=== PATIENT | male | born 1950 | race Caucasian/White ===

== ENCOUNTER 2018-12-14 04:02 | Observation (INO) ==
[2018-12-14] MEDS ORDERED: Sodium Chloride 0.9% 1,000 ML PRIMARY IV ONE (04:27)
[2018-12-14] MEDS ORDERED: ONDANSETRON 4 MG/2 ML VIAL IVP ONE (04:29)
[2018-12-14] MEDS ORDERED: KETOROLAC 15 MG/1 ML VIAL IVP ONE (04:30)
--- NOTE | 2018-12-14 04:41 | EKG ---
[address] [address] Measurements Intervals [place] Rate: 75 P: 45 SD: 164 QRS: -2 QRSD: 90 T: 38 QT: 329 QTc: 358 Interpretive Statements SINUS RHYTHM NONSPECIFIC T-WAVE ABNORMALITY No previous ECG available for comparison Electronically Signed On 12-14-18 13:19:21 MST by Michael Gonzalez [email or web address]
[2018-12-14] MEDS ORDERED: PANTOPRAZOLE IV 40 MG VIAL IVP ONE (04:43)
--- NOTE | 2018-12-14 04:43 | PDOC ---
General Adult HPI - General Chief Complaint: General Medical Stated Complaint: FEVER, LINDSEY, BLOODY EMESIS WITH SOB Date Seen by Provider: 12/14/18 Time Seen by Provider: 04:25 Source: POSITIVE: Patient Exam Limitations: POSITIVE: No limitations Nurse's Notes Reviewed & Considered: Yes - History of Present Illness Initial Comment: The patient is a 68-year-old male who presents to the emergency department by ambulance with complaints of increased shortness of breath, cough and vomiting. The patient states that he developed upper respiratory symptoms for 5 days ago. He was seen at the clinic on Thursday and tested for influenza which was negative. He states over the past 24 hours he's developed fever. He also has had cough productive of bloody sputum. He had an episode of emesis earlier this morning which also contained some bright red blood. He subsequently called EMS. Oxygen saturations were in the upper 80s on room air and he was placed on O2 per nasal cannula. The patient reports a right-sided headache in the temporal region. He does not have any known history of lung problems and does not have any history of smoking. He denies chest pain or abdominal pain. Have you received a tetanus shot in the past 10 years?: Unknown - Patient Home Medications Home Medications: Home Medications multivitamin tablet 1 tab PO QDAY 10/11/18 - Patient Allergies Allergies/Adverse Reactions: Allergies Allergy/AdvReac Type Severity Reaction Status Date / Time No Known Allergies Allergy Verified 12/14/18 04:17 Past Medical History - heen HEENT History: Other (please comment) Additional HEENT History: LEFT EYE GLASS PROTHESIS Cardiovascular History: Denies History Respiratory History: Denies History Gastrointestinal History: Denies History Genitourinary History: Denies History Endocrine History: Denies History Musculoskeletal History: Denies History Neurological History: Migraines Blood Disorders: Denies History Psychiatric History: Denies History History of Sexually Transmitted Diseases: No Male Reproductive History: Denies History Cancer History: Brain, Other (please comment) In Past Year Been Physically Harmed or Verbally Threatened: No History of MDRO: No History of Other Communicable Diseases: No Tobacco Use: Current Every Day Smoker In the Past 12 Months, Have Used or Abuse Any Substance: None Previous Surgical History: Yes Type / Date of Surgery: BRAIN SURGERY Significant Family History: Other (please comment) Additional Family History: MIGRAINES Past Medical History Reviewed: Reviewed - No Changes ROS - Limitations ROS Limitations: No Limitations Constitution: REPORTS: Chills, Fever Cardiovascular: REPORTS: Denies Cardiac Symptoms Respiratory: REPORTS: Cough Productive (Blood tinged sputum), Shortness Of Breath Neurological: REPORTS: Headache (Right lutheran) Gastrointestinal: REPORTS: Nausea, Vomitting (Small amount of bright red blood in the emesis this morning). DENIES: Black Stools, Bloody Stools, Constipation Musculoskeletal: REPORTS: Denies MS Symptoms Genitourinary: REPORTS: Denies Symptoms Eyes: REPORTS: Denies Symptoms ENT: REPORTS: Congestion, Sore Throat Skin: DENIES: Rash General Adult Exam - General Appearance General Appearance: POSITIVE: Alert, Cooperative, No Acute Distress - HEENT HEENT: POSITIVE: Head Inspection Nml, Eyes Inspection Nml, Ears Inspection Nml, Nose Inspection Nml, Pharynx Inspect. Nml - Neck Neck: POSITIVE: Normal Inspection. NEGATIVE: Lymphadenopathy - Respiratory Respiratory: POSITIVE: No Respiratory Distress, Breath Sounds Normal - Cardiovascular Cardiovascular: POSITIVE: Regular Rate & Rhythm, No Murmur - Abdomen Abdomen: Soft: (All Quadrants), Denies Tenderness: (All Quadrants), No Distentio n: (All Quadrants) - Skin Skin: POSITIVE: Normal Color, No Rash General Adult Progress - Results Reviewed by me Xrays/CTs/US Reviewed by me: Yes Radiology Findings: Chest x-ray interpreted by me shows some haziness in the right lower lobe with haziness of the right heart border concerning for early right lower lobe infiltrate Lab Results Reviewed by Me: Yes Lab Results:: Laboratory Results 12/14/18 12/14/18 12/14/18 04:48 04:48 04:48 WBC 7.84 RBC 5.58 Hgb 16.3 Hct 46.5 MCV 83.3 MCH 29.2 MCHC 35.1 RDW Std Deviation 41.3 RDW Coeff of Erica 13.6 Plt Count 192 MPV 9.8 Immature Gran % (Auto) 0.3 Neut % (Auto) 87.1 H Lymph % (Auto) 8.3 L [place] % (Auto) 3.7 L Eos % (Auto) 0.5 Baso % (Auto) 0.1 Immature Gran # (Auto) 0.02 Neut # (Auto) 6.83 Lymph # (Auto) 0.65 Hunt # (Auto) 0.29 L Eos # (Auto) 0.04 Baso # (Auto) 0.01 WBC Morphology Comment Normal morphology Plt Morphology Comment Normal morphology RBC Morph Comment Normal morphology D-Dimer 0.31 VBG pH VBG pCO2 VBG HCO3 VBG Base Excess Sodium 143 Potassium 3.9 Chloride 111 Carbon Dioxide 23 Anion Gap 9 BUN 12 Creatinine 0.8 Estimated GFR > 60 BUN/Creatinine Ratio 15.00 Glucose 127 H Calculated Osmolality 297.0 H Lactic Acid Calcium 8.7 Magnesium 1.8 Total Bilirubin 0.6 AST 28 ALT 42 Alkaline Phosphatase 86 Troponin I C-Reactive Protein 1.4 H NT-Pro-B Natriuret Pep 134 H Total Protein 6.4 Albumin 3.8 Globulin 2.6 Albumin/Globulin Ratio 1.40 12/14/18 12/14/18 12/14/18 04:48 04:48 04:52 WBC RBC Hgb Hct MCV MCH MCHC RDW Std Deviation RDW Coeff of Erica Plt Count MPV Immature Gran % (Auto) Neut % (Auto) Lymph % (Auto) Hunt % (Auto) Eos % (Auto) Baso % (Auto) Immature Gran # (Auto) Neut # (Auto) Lymph # (Auto) Hunt # (Auto) Eos # (Auto) Baso # (Auto) WBC Morphology Comment Plt Morphology Comment RBC Morph Comment D-Dimer VBG pH 7.39 VBG pCO2 36 L VBG HCO3 22 VBG Base Excess -3 L Sodium Potassium Chloride Carbon Dioxide Anion Gap BUN Creatinine Estimated GFR BUN/Creatinine Ratio Glucose Calculated Osmolality Lactic Acid 1.5 Calcium Magnesium Total Bilirubin AST ALT Alkaline Phosphatase Troponin I < 0.012 C-Reactive Protein NT-Pro-B Natriuret Pep Total Protein Albumin Globulin Albumin/Globulin Ratio CBC and BMP: 12/14/18 04:48 12/14/18 04:48 EKG Interpretation:: POSITIVE: Normal Sinus Rhythm, Normal Rate, Normal QRS, Normal ST/T - Patient's Progress MDM / ED Course: The patient's O2 sats were in the upper 80s on room air and he was placed on O2 per nasal cannula at 2 L to maintain oxygen saturations above 90%. The patient appears to be dehydrated. An IV was established per EMS and he received a 1 L bolus of normal saline. Blood cultures and lactate were obtained. He also received Zofran 4 mg IV for nausea as well as Toradol 15 mg IV for pain. He also received Protonix 40 mg IV. The patient still reported general malaise. Oxygen saturations continued to bump down into the upper 80s on room air and he was continued on O2 per nasal cannula. His blood work is essentially unremarkable with a normal white count, mildly elevated CRP of 1.4. His d-dimer and troponin are normal. Chest x-ray shows some haziness in the right lower lobe concerning for an early pneumonia. His respiratory panel was negative for any pathogens. The patient's clinical presentation is consistent with an early pneumonia with associated hypoxia. The patient did receive Rocephin 1 g IV and Zithromax 500 mg IV. He continues to have significant general malaise incision was made to go ahead and admit the patient for further treatment. I did discuss the patient with Dr. Ftizgerald and he has agreed to admit the patient for further care. - Consult Counseled: POSITIVE: Patient, RE: Lab Results, RE: Radiology Results, RE: DX, RE: Need for F/U Patient Care Time - Estimated PCT Patient Care Time (In Minutes): 30 Vital Signs - Recent Vital Signs Vital Signs: Vital Signs (Last 8 hours) Temp Pulse Resp BP Pulse Ox 12/14/18 05:36 99.0 F 74 22 140/73 96 12/14/18 04:02 98.7 F 79 20 153/83 90 - VS Reviewed Vital Signs Reviewed: Yes Discharge Clinical Impression: Pneumonia, Hypoxia Discharge Disposition: Discharged to Home Condition: Fair Follow Up With: Maxwell Sarmiento DNP [Primary Care Provider] - Date Decision to Admit to Inpatient: 12/14/18 Time Decision to Admit to Inpatient: 07:30
[2018-12-14 05:00] LABS: BASOPHILS # (AUTO) 0.01 10*3/UL; BASOPHILS % (AUTO) 0.1 % (0-1); EOSINOPHILS # (AUTO) 0.04 10*3/UL; EOSINOPHILS % (AUTO) 0.5 % (0-8); Hematocrit [HCT] 46.5 % (42.0-52.0); Hemoglobin [HGB] 16.3 g/dL (14.0-18.0); LYMPHOCYTES # (AUTO) 0.65 10*3/uL; MEAN CORPUSCULAR HEMOGLOBIN 29.2 PG (27-31); MEAN CORPUSCULAR HGB CONC 35.1 g/dL (33-37); MEAN CORPUSCULAR VOLUME 83.3 FL (80-90); MEAN PLATELET VOLUME 9.8 FL (7.4-12.2); MONOCYTES # (AUTO) 0.29 10*3/UL (0.3-0.8); MONOCYTES % (AUTO) 3.7 % (5-15); NEUTROPHILS # (AUTO) 6.83 10*3/UL; NEUTROPHILS % (AUTO) 87.1 % (50-80); RED BLOOD COUNT 5.58 10^6/uL (4.70-6.10)
[2018-12-14 05:05] LABS: VENOUS PH 7.39 (7.32-7.42)
[2018-12-14 05:30] LABS: BLOOD UREA NITROGEN 12 mg/dL (7-22); SERUM ALBUMIN 3.8 g/dL (3.5-4.8)
[2018-12-14 05:40] LABS: PLATELET MORPHOLOGY COMMENT NORMAL MORPHOLOGY (NORM); RBC MORPHOLOGY COMMENT NORMAL MORPHOLOGY (NORM); WBC MORPHOLOGY COMMENT NORMAL MORPHOLOGY (NORM)
[2018-12-14] MEDS ORDERED: cefTRIAXone Inj 1 GM in Sodium Chloride 0.9% 100 ML IV ONE (06:36)
--- NOTE | 2018-12-14 08:06 | DI ---
XR CXR 1VW,12/14/2018 4:27 AM: Clinical History: Hypoxia and cough Previous Exam: None at this facility. Findings: A single frontal radiograph of the chest is obtained, and demonstrate clear lungs. There is some subs egmental atelectasis in the left lung base. The cardiomediastinum and bony thorax are unremarkable. Impression: No acute disease.
[2018-12-14] MEDS ORDERED: CALCIUM CARBONATE 500 MG (TUMS) CHEWABLE TABLET PO PRN (09:01)
[2018-12-14] MEDS ORDERED: LIDOCAINE W/ SODIUM BICARB 0.5 ML SYR SUBD PRN (09:01)
[2018-12-14] MEDS ORDERED: DOCUSATE 100 MG CAPSULE PO PRN (09:01)
[2018-12-14] MEDS ORDERED: ACETAMINOPHEN 325 MG TABLET PO PRN (09:01)
[2018-12-14] MEDS ORDERED: ONDANSETRON 4 MG/2 ML VIAL IVP PRN (09:01)
--- NOTE | 2018-12-14 09:59 | DI ---
CT CTA Chest Non-Coronary O,12/14/2018 9:01 AM: Clinical History: Hypoxia, fever and question of pulmonary embolism. Previous Exam: None at this facility. Findings: Multiple helically acquired CT images are obtained through the chest following the intravenous admini stration of contrast, and demonstrate subsegmental atelectasis in the lung bases. The pulmonary arter ies are normal without filling defect or truncation to suggest pulmonary embolism. The thyroid is normal. There is no infiltrate nor effusion. The upper abdomen is unremarkable. Impression: No acute cardiopulmonary disease.
[2018-12-14] MEDS ORDERED: LORazepam 2 MG/1 ML VIAL IVP ONE (10:52)
--- NOTE | 2018-12-14 10:59 | PDOC ---
HPI - History of Present Illness Date of Service: 12/14/18 Time of Service: 10:54 Chief Complaint: Headache History of Present Illness: This very pleasant 68-year-old male with really no prior past medical history comes in stating that he's had right-sided headache that has gotten significantly worse over the past 24-48 hours. He states this all started back a few days ago and he states that he saw Timberly long in the clinic for what he thought were influenza symptoms with cough, chills, nausea and vomiting. He thought that was recently, but when I reviewed the note that was actually as of 10/11/2018, and his symptoms have persisted since then. He used ibuprofen 3 times a day until about a week to 2 weeks ago when he discontinued it after reading that could cause bleeding complications. He had an onset of a fever associated with this headache which was right-sided last night. He had some nausea and vomiting this morning and noticed that he had some small amounts of blood in the vomit. He denies any abdominal pain, does not smoke, does not drink alcohol, and is been off of anti-inflammatories for a couple of weeks. He has never had an EGD or colonoscopy. He was not found to have any evidence of anemia. His symptoms were concerning for pneumonia in the emergency room so he got antibiotics there. No infiltrate was seen on chest x-ray. Interestingly, he states to me that he's had a long-standing history of having numbness on the right upper extremity, his right tongue, and weakness on the right side, occasionally associated with headaches, that are brought on by heat exhaustion or stress situations. He states that he typically goes home and sleeps to try and relieve the symptoms when that happens. He noted to me that he also had blurry vision prior to the onset of his right-sided headache today. His he adache is only slightly better but it is still present. He does not have any meningeal symptoms. He was noted to be hypoxic in the emergency room and placed on oxygen. Past Medical History Medical History: None Surgical History: 1. Prior cranial surgery in use related to possible brain tumors? Pertinent Family History: Father had alcohol problems. Mother lives with the patient and has underlying Alzheimer's dementia. Tobacco Use: Never Smoker Do you dip or chew tobacco: Yes In the Past 12 Months, Have Used or Abuse Any of the Following Substance: None Alcohol Use: None Medication / Allergies Home Medications: Home Medications Medication Instructions Recorded Confirmed Type multivitamin tablet 1 tab PO QDAY 10/11/18 12/14/18 History Allergies/Adverse Reactions: Allergies Allergy/AdvReac Type Severity Reaction Status Date / Time No Known Allergies Allergy Verified 12/14/18 04:17 Review of Systems - Review of Systems All Systems: Reviewed & No Additional Complaints Except as Stated (I did a 12 point review systems and it was negative other than that discussed below and in the history of present illness. He does have some nocturia, 2 times per night but does not feel that it's a problem. He has a psoriasis patch in his lower back but responds to steroid creams.) Exam - Vitals Vital Signs: Vital Signs Temperature 97.3 F Temperature Source Temporal Artery Scan Pulse Rate [Pulse Oximeter] 77 Pulse Rate 87 Respiratory Rate 22 Blood Pressure [Left Arm] 116/56 Blood Pressure 132/72 Pulse Ox 94 Oxygen Delivery Method Room Air Height 5 ft 8 in Weight 225 lb 6 oz - General General Appearance: No Acute Distress, Cooperative - Head Head Exam: Normal Inspection, Normocephalic, Atraumatic - Eye Eye Exam: POSITIVE: No Scleral Icterus - ENT ENT Exam: POSITIVE: Mucous Membranes Moist - Neck Neck Exam: Normal Inspection, No Tenderness, No Lymphadenopathy, No Thyromegaly, JVP is not Raised - Respiratory Respiratory Exam: POSITIVE: Clear to Auscultation - Bilaterally, Breathing Non Labored, Normal to Percussion and Palpation - Cardiovascular Cardiovascular Exam: POSITIVE: RRR - GI/Abdominal GI/Abdominal Exam: POSITIVE: Normal Bowel Sounds, Non Tender, Non Distended, Soft - Rectal Rectal Exam: POSITIVE: Deferred - External Exam: POSITIVE: Deferred Exam: POSITIVE: Deferred - Extremities Extremities Exam: POSITIVE: No Clubbing Present, No Edema Present, No Cyanosis P resent - Back Back Exam: POSITIVE: No CVA Tenderness - Neurological Neurological Exam: POSITIVE: Alert, Oriented x 3, No Facial Droop, Speech Intact / Clear, Moves All Extremities Equally - Psychiatric Psychiatric Exam: POSITIVE: Normal Affect, Normal Mood - Integumentary Additional Integumentary Exam Details: Has a psoriatic patch on lower back/upper buttocks region, no evidence of any secondary infection Results - Labs CBC and BMP: 12/14/18 04:48 12/14/18 04:48 Additional Lab Results: Laboratory Results 12/14/18 12/14/18 12/14/18 04:48 04:48 04:48 WBC 7.84 RBC 5.58 Hgb 16.3 Hct 46.5 MCV 83.3 MCH 29.2 MCHC 35.1 RDW Std Deviation 41.3 RDW Coeff of Erica 13.6 Plt Count 192 MPV 9.8 Immature Gran % (Auto) 0.3 Neut % (Auto) 87.1 H Lymph % (Auto) 8.3 L [place] % (Auto) 3.7 L Eos % (Auto) 0.5 Baso % (Auto) 0.1 Immature Gran # (Auto) 0.02 Neut # (Auto) 6.83 Lymph # (Auto) 0.65 [place] # (Auto) 0.29 L Eos # (Auto) 0.04 Baso # (Auto) 0.01 WBC Morphology Comment Normal morphology Plt Morphology Comment Normal morphology RBC Morph Comment Normal morphology D-Dimer 0.31 VBG pH VBG pCO2 VBG HCO3 VBG Base Excess Sodium 143 Potassium 3.9 Chloride 111 Carbon Dioxide 23 Anion Gap 9 BUN 12 Creatinine 0.8 Estimated GFR > 60 BUN/Creatinine Ratio 15.00 Glucose 127 H Calculated Osmolality 297.0 H Lactic Acid Calcium 8.7 Magnesium 1.8 Total Bilirubin 0.6 AST 28 ALT 42 Alkaline Phosphatase 86 Troponin I C-Reactive Protein 1.4 H NT-Pro-B Natriuret Pep 134 H Total Protein 6.4 Albumin 3.8 Globulin 2.6 Albumin/Globulin Ratio 1.40 12/14/18 12/14/18 12/14/18 04:48 04:48 04:52 WBC RBC Hgb Hct MCV MCH MCHC RDW Std Deviation RDW Coeff of Erica Plt Count MPV Immature Gran % (Auto) Neut % (Auto) Lymph % (Auto) [place] % (Auto) Eos % (Auto) Baso % (Auto) Immature Gran # (Auto) Neut # (Auto) Lymph # (Auto) [place] # (Auto) Eos # (Auto) Baso # (Auto) WBC Morphology Comment Plt Morphology Comment RBC Morph Comment D-Dimer VBG pH 7.39 VBG pCO2 36 L VBG HCO3 22 VBG Base Excess -3 L Sodium Potassium Chloride Carbon Dioxide Anion Gap BUN Creatinine Estimated GFR BUN/Creatinine Ratio Glucose Calculated Osmolality Lactic Acid 1.5 Calcium Magnesium Total Bilirubin AST ALT Alkaline Phosphatase Troponin I < 0.012 C-Reactive Protein NT-Pro-B Natriuret Pep Total Protein Albumin Globulin Albumin/Globulin Ratio - EKG Data -: EKG Interpreted by Me Rate: Normal EKG Shows Normal: Sinus Rhythm - EKG Data EKG Interpretation: Nonspecific ST-T Wave Changes (T-wave flattening in V4) - Imaging Status: Image Reviewed by Me (Chest x-ray negative on my view for pneumonia. CT scan of chest, negative for pneumonia. The radiologist read negative for pulmonary emboli.) Assessment and Plan - Patient Problems (1) Migraine headache with aura Current Visit: Yes Status: Acute Code(s): G43.109 - Migraine with aura, not intractable, without status migrainosus Qualifiers: Status migrainosus presence: without status migrainosus Intractability: intractable Qualified Code(s): G43.119 - Migraine with aura, intractable, without status migrainosus (2) Hematemesis Current Visit: Yes Status: Acute Code(s): K92.0 - Hematemesis Qualifiers: Nausea presence: with nausea Qualified Code(s): K92.0 - Hematemesis (3) Hypoxia Current Visit: Yes Status: Acute Code(s): R09.02 - Hypoxemia - Assessment / Plan Additional Assessment/Plan Details: Admit the patient. We will do this under observation. I think he has severe migraine headache. The hematemesis is probably a combination of some gastric irritation from recent use of NSAIDs. I did tell the patient I think he would warrant an EGD. I don't necessarily think that needs to be done today with a normal hemoglobin and hematocrit. I will check his hemoglobin and hematocrit tomorrow and if there is any changes, would consult surgery, but otherwise we'll try to arrange an outpatient visit for that as the patient would also benefit from a screening colonoscopy. No nonsteroidal anti-inflammatory drug use Proton pump inhibitor Given the story, particularly with prior brain surgery in use, ongoing to go ahead and check an MRI scan to determine whether or not there could be an underlying brain tumor that's causing these migraine headaches. If MRI scan is negative, will try triptan to see if that will help control the migraine headache pain. Antiemetics. I will write for some IV fluids. Full code. Plan above discussed with patient and he agreed.
[2018-12-14] MEDS: Sodium Chloride 0.9% 1,000 ML PRIMARY IV SCH ×2 (11:20→20:48)
[2018-12-14] MEDS ORDERED: LORazepam 2 MG/1 ML VIAL ONE (11:21)
[2018-12-14] MEDS ORDERED: SUMAtriptan Succinate 6 MG/0.5 ML SUBCUT ONE (15:27)
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
[2018-12-14] MEDS ORDERED: SUMAtriptan Tab 25 MG TAB PO ONE (19:07)
[2018-12-15 05:07] LABS: BASOPHILS # (AUTO) 0.02 10*3/UL; BASOPHILS % (AUTO) 0.4 % (0-1); EOSINOPHILS # (AUTO) 0.16 10*3/UL; EOSINOPHILS % (AUTO) 3.6 % (0-8); Hematocrit [HCT] 44.4 % (42.0-52.0); Hemoglobin [HGB] 15.4 g/dL (14.0-18.0); LYMPHOCYTES # (AUTO) 1.39 10*3/uL; MEAN CORPUSCULAR HEMOGLOBIN 29.7 PG (27-31); MEAN CORPUSCULAR HGB CONC 34.7 g/dL (33-37); MEAN CORPUSCULAR VOLUME 85.5 FL (80-90); MEAN PLATELET VOLUME 9.8 FL (7.4-12.2); MONOCYTES # (AUTO) 0.32 10*3/UL (0.3-0.8); MONOCYTES % (AUTO) 7.2 % (5-15); NEUTROPHILS # (AUTO) 2.56 10*3/UL; NEUTROPHILS % (AUTO) 57.3 % (50-80); RED BLOOD COUNT 5.19 10^6/uL (4.70-6.10)
[2018-12-15 05:14] LABS: PLATELET MORPHOLOGY COMMENT NORMAL MORPHOLOGY (NORM); RBC MORPHOLOGY COMMENT NORMAL MORPHOLOGY (NORM); WBC MORPHOLOGY COMMENT NORMAL MORPHOLOGY (NORM)
[2018-12-15] MEDS ORDERED: PANTOPRAZOLE 40 MG TABLET PO SCH (07:00)
[2018-12-15] MEDS: Sodium Chloride 0.9% 1,000 ML PRIMARY IV SCH (07:22)
[2018-12-15] MEDS ORDERED: Multivitamin Tab 1 TAB PO SCH (09:00)
[2018-12-15 11:24] VITALS: BP 143/76; RESP 18; TEMP 96.9; O2SAT 93
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
== END 2018-12-15 13:48 | disposition home or self-care (01) ==
LOC: ER 04:02 → MED/SURG 04:02
PROVIDERS: ADMIT Family Medicine; ATTEND Family Medicine